=== PATIENT | male | born 1950 | race Caucasian/White ===

== ENCOUNTER 2017-09-22 09:45 | Day surgery (SDC) | payer BC, MEDICARE ==
[~2017-09-22 09:45] MED LIST: Lactated Ringers 1,000 ML IV SCH
[2017-09-22] MEDS ORDERED: fentaNYL 100 MCG/2 ML SDV ONE (11:40)
[2017-09-22] MEDS ORDERED: Propofol 200 MG/20 ML SDV ONE (11:40)
--- NOTE | 2017-09-22 17:59 | OR ---
DATE OF SURGERY: 09/22/2017 REFERRING PROVIDER: Derek Leija M.D. PRE-OPERATIVE DIAGNOSES: 1. Positive FIT stool card. The patient's last colonoscopy was 10 years ago and was normal. There is no known family history of colon cancer or colon polyps. 2. The patient does have history of diverticulosis with previous diverticulitis in June 2017. POST-OPERATIVE DIAGNOSES: 1. 5 mm polyp at 25 cm removed with hot snare. 2. Mild left diverticulosis. PROCEDURE: Colonoscopy with polypectomy x1 using hot snare. SURGEON: Andrew Lorenzo M.D. ANESTHESIA: Monitored anesthesia care. BOWEL PREP: Fair. Ron is a 67-year-old male who was brought to the endoscopy suite after discussing risks and benefits of the procedure. Informed consent was obtained for conscious sedation and colonoscopy with or without biopsy and/or polypectomy. We also discussed possibility of missed lesions. Pre-procedure exam was unremarkable. IV, oxygen, and monitors were placed. The patient was placed in the left lateral decubitus position. Sedation was administered and a digital rectal exam was performed which was unremarkable. Colonoscope was passed into the rectum and slowly advanced all the way to the cecum. Cecum was viewed and photographed. Prep was only fair in the transverse and descending colon. Other segments were pretty good. The colonoscope was slowly withdrawn and the mucosa was closed observed in a direct circumferential manner. The ascending colon was otherwise unremarkable. The transverse colon was unremarkable. The descending colon was unremarkable. The sigmoid colon did reveal 5 mm polyp at 25 cm, removed with hot snare. The left colon did reveal some mild diverticulosis. Retroflexion was performed and rectal mucosa was unremarkable. Scope was removed. The patient tolerated the procedure well. The patient was monitored until that baseline status. Discharge instructions were reviewed and the patient was discharged in good condition. COMPLICATIONS: None. TOTAL TIME: 18 minutes. ESTIMATED BLOOD LOSS: None. RECOMMENDATIONS/FOLLOW-UP: We will await results of path report to determine ideal followup interval. We will have the patient hold his aspirin for 3 days to limit any chance of bleeding. I would like to kindly thank Dr. Leija for this referral. DMB: 09/22/2017 12:21:47 MODL: 09/22/2017 17:50:16 /[id number]
== END 2017-09-22 13:30 | disposition home or self-care (01) ==
LOC: VM.SDS 09:45
PROVIDERS: ATTEND Family Medicine
DX: Z12.11 Encounter for screening for malignant neoplasm of colon (principal); K63.5 Polyp of colon; K57.30 Diverticulosis of large intestine without perforation or abscess without bleeding; G47.33 Obstructive sleep apnea (adult) (pediatric); N52.9 Male erectile dysfunction, unspecified; N40.0 Benign prostatic hyperplasia without lower urinary tract symptoms; M19.90 Unspecified osteoarthritis, unspecified site; E66.9 Obesity, unspecified; Z68.38 Body mass index [BMI] 38.0-38.9, adult; Z88.1 Allergy status to other antibiotic agents; Z98.52 Vasectomy status; Z79.82 Long term (current) use of aspirin; Z79.899 Other long term (current) drug therapy; Z87.891 Personal history of nicotine dependence
CPT/HCPCS: 45385; J2704; J3010; J7120